=== PATIENT | male | born 1995 ===

== ENCOUNTER 2024-11-19 11:15 | Emergency (ER) | payer BC ==
[2024-11-19] MEDS: Take Home: Amoxicillin 500 MG, 6 Cap Pack PO ONE (12:20)
[2024-11-19 12:28] VITALS: BP 145/89; PULSE 91
== END 2024-11-19 12:19 | disposition home or self-care (01) ==
LOC: LL.ED 11:15
DX: J02.0 Streptococcal pharyngitis (principal); Z88.6 Allergy status to analgesic agent; Z88.5 Allergy status to narcotic agent
CPT/HCPCS: 87651; 99283; A9270-GY